=== PATIENT | male | born 1985 | race Caucasian/White ===

== ENCOUNTER 2016-08-29 10:53 | Emergency (ER) | payer SELFPAY ==
--- NOTE | 2016-08-30 12:50 | NUR ---
Received [facility] person referral. Attempted to contact pt. No answer, voice mail is not set up.
--- NOTE | 2016-08-31 10:59 | NUR ---
Attempted to contact pt. No answer, voice mail is not set-up.
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
== END 2016-08-29 12:45 | disposition home or self-care (01) ==
LOC: ER 10:53
DX: S29.012A Strain of muscle and tendon of back wall of thorax, initial encounter (principal); F17.210 Nicotine dependence, cigarettes, uncomplicated; F32.9 Major depressive disorder, single episode, unspecified; Z88.8 Allergy status to other drugs, medicaments and biological substances; Y04.0XXA Assault by unarmed brawl or fight, initial encounter